=== PATIENT | female | born 1995 | race Caucasian/White ===

== ENCOUNTER 2020-03-15 12:39 | Inpatient (IN) | payer MEDICAID, SELFPAY ==
[2020-03-15] VITALS (23 sets, daily range): BP systolic 106–159; BP diastolic 57–98; PULSE 85–136; RESP 16–28; TEMP 37.1–38.1; O2SAT 89–100; BMI 33.7; BMI 35.4; BMI 35.5
--- NOTE | 2020-03-15 12:28 | ECG_ITS ---
APPROVED REPORT Exam: Resting ECG HR:119 bpm ECG Measurements Heart Rate 119 AXES WY 142 P 37 QRSd 80 QRS 3 QT 296 T 36 QTc 416 <Conclusion> Sinus tachycardia Possible Left atrial enlargement Borderline ECG Electronically signed by : Geoff Almaraz, 03/17/2020 06:27:51
--- NOTE | 2020-03-15 12:45 | XR_ITS ---
PROCEDURE: XR CHEST PORTABLE CLINICAL HISTORY: chest pain COMPARISON: CT CT CHEST WO/W CON from 03/15/2020 FINDINGS: The cardiomediastinal silhouette and pulmonary vascularity are within normal limits. There is vague increased density in the left upper lobe laterally. A faint nodules present in the right upper lobe with central lucency consistent with a cavitating nodule. This area measures 12 mm. No acute bony abnormalities. IMPRESSION: Left upper lobe infiltrate. Small cavitating nodule right upper lobe. Please see chest CT report for further description Dictated by: Christopher Moe MD 03/15/2020 15:24 Christopher Moe MD in [place] 03/15/2020 15:24
--- NOTE | 2020-03-15 12:50 | CT_ITS ---
PROCEDURE: CT CHEST WO/W CON CLINCAL INDICATION: fever Fever and chest pain, right shoulder pain COMPARISON: No exams were available for comparison TECHNIQUE: IV Contrast: 75ml Optiray 350 Axial images obtained with sagittal and coronal reformats. All CT scans at the facility use one or more dose reduction, viz: automated exposure control, ma/kV adjustment per patient size (including targeted exams where dose is matched to indication, i.e. head), or iterative reconstruction technique. FINDINGS: There is mild mediastinal and bilateral hilar adenopathy. Soft tissue density is present in the right lower paratracheal region but is felt to be related to an unopacified azygos vein. No evidence of aortic aneurysm or central pulmonary embolus. There are multiple bilateral pulmonary nodules some of which show central cavitation. Right upper lobe nodule is present and measures 2 cm with some central cavitation. Cavitating nodules present in the right upper lobe posteriorly at 1.5 cm. Subpleural parenchymal opacity is present in the right upper lobe laterally along the major fissure with contiguous subpleural atelectasis or consolidation in the right lower lobe laterally. A small cavitating nodules present in the right lower lobe posteriorly at 9 mm with an additional nodule posterior to this at 5 mm with atelectatic changes in the right lung base posteriorly. On the left there is a masslike area of consolidation measuring 3 cm in the left upper lobe posteriorly along the major fissure with some central cavitation. A nodule is present within the lingula at 8 mm and there is a nodule in the left lower lobe posteriorly at 12 mm. Two additional left lower lobe nodules are present which measure 4 mm. A left upper lobe subpleural nodules present at 3 mm. No significant effusion. Upper abdominal images show splenomegaly at 16 cm. No acute bony anomalies are evident. There is mild kyphosis with degenerative changes of the lower thoracic spine. IMPRESSION: 1. Multiple bilateral pulmonary nodules some of which are cavitating with the largest masslike area of consolidation in the left upper lobe posteriorly and right upper lobe in the apex. Septic emboli are considered. Metastatic disease would be included in the differential diagnosis. Atelectatic changes are present in the lower lobes 2. Mild mediastinal and hilar adenopathy. 3. Splenomegaly Dictated by: Christopher Moe MD 03/15/2020 14:56 Christopher Moe MD in [facility] 03/15/2020 14:56
--- NOTE | 2020-03-15 12:50 | CT_ITS ---
PROCEDURE: CT CERVICAL SPINE WO CON CLINICAL INDICATION: fever Neck pain with fever COMPARISON: No exams were available for comparison TECHNIQUE: Axial images obtained with sagittal and coronal reformats. All CT scans at the facility use one or more dose reduction, viz: automated exposure control, ma/kV adjustment per patient size (including targeted exams where dose is matched to indication, i.e. head), or iterative reconstruction technique. Axial spiral CT scanning performed of the cervical spine beginning at the base of the skull and continuing to the upper T-spine. 3-D multiplanar reconstruction with 3-D manipulation of volumetric data set in image rendering was completed by the radiologist and/or technologist with the supervision of the radiologist on independent workstation. FINDINGS: There is partial opacification of the left mastoid air cells. There is straightening of the cervical lordosis which could be due to patient positioning or muscle spasm. There is minimal spurring of the endplate on the right at C2 posteriorly. Mild degenerative disc disease C5-C6. Remaining cervical spine has an unremarkable appearance. Cavitating masses are present in the right upper lobe. Please see chest CT report for further description. No acute fracture or dislocation. IMPRESSION: 1. Straightening of cervical lordosis with mild degenerative disc disease at C5-C6 with minimal spurring of the posterior endplate on the right inferiorly at C2. 2. Left mastoid effusion. 3. Cavitating right upper lobe masses. Please see chest CT report Dictated by: Christopher Moe MD 03/15/2020 14:48 Christopher Moe MD in [facility] 03/15/2020 14:48
--- NOTE | 2020-03-15 12:50 | XR_ITS ---
PROCEDURE: XR SHOULDER RT MIN 2V CLINICAL INDICATION: pain COMPARISON: No exams were available for comparison FINDINGS: No fracture or dislocation. No lytic or blastic change. There is normal mineralization. The joint spaces are well-preserved. No significant degenerative/arthritic changes. No erosive changes evident. Other findings:None. IMPRESSION: No acute findings. Dictated by: Christopher Moe MD 03/15/2020 15:23 Christopher Moe MD in [facility] 03/15/2020 15:23
[2020-03-15 13:02] LABS: Basophils % 0.3 % (0.1-2.0); Eosinophils # 0.1 K/mm3 (0.0-0.4); Eosinophils % 0.4 % (0.1-12.0); Hematocrit 38.8 % (37.0-47.0); Hemoglobin 12.9 g/dL (12.2-16.2); Lymphocytes # 2.4 K/mm3 (0.7-4.5); Lymphocytes % 19.8 % (10-50); Mean Corpuscular HGB Conc 33.3 g/dL (31.8-35.4); Mean Corpuscular Hemoglobin 28.6 pg (27.0-31.2); Mean Corpuscular Volume 85.7 fl (81-99); Monocytes # 0.5 K/mm3 (0.1-1.0); Monocytes % 4.1 % (1.7-9.3); Neutrophils # 8.9 K/mm3 (1.8-7.8); Neutrophils % 75.3 % (37.0-80.0); Platelet Count 315 K/mm3 (142-424); Red Blood Count 4.53 M/mm3 (4.20-5.40); Red Cell Distribution Width 13.8 % (11.5-17.5); White Blood Count 11.8 K/mm3 (4.8-10.8)
[2020-03-15 13:02] LABS: Microscopic, Urine URINE MICROSCOPIC (MICROSCOPIC)
[2020-03-15 13:04] LABS: Appearance,Urine CLOUDY (Clear); Bilirubin,Urine Negative (Negative); Blood, Urine 3+ (Negative); Color,Urine YELLOW (Yellow); Glucose,Urine (UA) Negative (Negative); Ketones,Urine Negative (Negative); Leukocyte Esterase,Urine 1+ (Negative); Nitrate,Urine Negative (Negative); PH,Urine 6.5 (5.0-8.5); Protein,Urine TRACE (Negative); Specific Gravity, Urine <= 1.005 (1.005-1.030)
[2020-03-15 13:05] LABS: Chloride 96 mmol/L (98-107); Potassium 3.8 mmoL/L (3.5-5.1); Sodium 133 mmol/L (136-145)
[2020-03-15 13:06] LABS: Urine Pregnancy, HCG Qual. Negative (Negative)
[2020-03-15 13:07] LABS: Alanine Aminotransferase 182 U/L (12-78); Aspartate Amino Transferase 90 U/L (14-36); Blood Urea Nitrogen 8 mg/dl (7-17); Creatinine Clearance Estimated 200 mL/min (50-200); Estimated Glomerular Filt Rate 101 ml/min (>60); GFR (African American) 122 ML/MIN (>60)
[2020-03-15 13:08] LABS: Albumin Level 3.6 g/dl (3.5-5.0); Albumin/Globulin Ratio 0.9 (1.1-1.8); Alkaline Phosphatase 96 U/L (38-126); Anion Gap 12.8 mEq/L (5-15); Bilirubin,Total 0.6 mg/dl (0.2-1.3); Calcium 9.2 mg/dl (8.4-10.2); Carbon Dioxide 28 mmol/L (22.0-30.0); Globulin 3.8 g/dL (1.3-3.2); Glucose 132 mg/dl (74-100); Lactic Acid 1.1 mmol/L (0.7-2.1); Strep Scrn Group A (Rapid) Negative (Negative); Total Protein,Serum 7.4 g/dl (6.3-8.2)
[2020-03-15 13:11] LABS: Bacteria,Urine 1+ /lpf; RBC,Urine 20-50 #/hpf (0-3)
[2020-03-15 13:13] LABS: C-Reactive Protein 104.5 mg/L (0-4)
[2020-03-15 13:22] LABS: Troponin I < 0.01 ng/ml (0.00-0.034)
[2020-03-15 13:26] LABS: Erythrocyte Sedimentation Rate 43 mm/hr (0-20)
[2020-03-15 13:56] LABS: Coronavirus 19 IgG Antibody Negative (Negative); Coronavirus 19 IgM Antibody Negative (Negative)
--- NOTE | 2020-03-15 15:13 | PC.NURSE ---
PAGE TO DR HARVEY
--- NOTE | 2020-03-15 15:31 | PC.NURSE ---
[facility] called for transfer, they are on divert.
--- NOTE | 2020-03-15 15:32 | PC.NURSE ---
[facility] called for transfer
--- NOTE | 2020-03-15 15:48 | PC.NURSE ---
Dr Sofia speaking with Dr Castro.
--- NOTE | 2020-03-15 15:51 | HMH.EDFEV ---
ED Disposition Clinical Impression: Viral pneumonia, Septic pulmonary embolism, SIRS (systemic inflammatory response syndrome) Disposition: Xfer Short-Term Hosp Condition on Discharge: Good Referrals: PCP,No [Primary Care Provider] - - Critical Care Critical Care Time: No Attestation: On 03/15/20, the high probability of a clinically significant, sudden or life threatening deterioration of the following system(s) required my full and direct attention, intervention and personal management. The time I documented below is in addition to time spent performing reported procedures but includes the following listed in this critical care notation. Medical Decision Making - Medical Records Medical records reviewed: Yes: I reviewed the patient's medical records. - Jamir Inquiry Pt receiving controlled substance: No Vital Signs: 03/15/20 12:41 03/15/20 14:40 Temperature 100.5 F H Temperature Source Oral Pulse Rate [Right Radial] 118 H 96 H Respiratory Rate 17 20 Blood Pressure [Right Arm] 159/98 H 116/63 Blood Pressure Mean [Right Arm] 118 80 Blood Pressure Source [Right Arm] Automatic Cuff Blood Pressure Position [Right Arm] Sitting 02 Sat by Pulse Oximetry 93 L 91 L Oxygen Delivery Method Room Air Room Air - Lab Data Lab results reviewed: Yes: I reviewed the patient's lab results. Lab Results 03/15/20 12:45: WBC 11.8 H, RBC 4.53, Hgb 12.9, Hct 38.8, MCV 85.7, MCH 28.6, MCHC 33.3, RDW 13.8, Plt Count 315, MPV 10.0, Neut % (Auto) 75.3, Lymph % (Auto) 19.8, [place] % (Auto) 4.1, Eos % (Auto) 0.4, Baso % (Auto) 0.3, Neut # (Auto) 8.9 H, Lymph # (Auto) 2.4, [place] # (Auto) 0.5, Eos # (Auto) 0.1, Baso # (Auto) 0.0 03/15/20 12:45: Sodium 133 L, Potassium 3.8, Chloride 96 L, Carbon Dioxide 28, Anion Gap 12.8, BUN 8, Creatinine 0.70, Estimated Creat Clear 200, Estimated GFR 101, Est GFR ( Amer) 122, Glucose 132 H, Calcium 9.2, Total Bilirubin 0.6, AST 90 H, ALT 182 H, Alkaline Phosphatase 96, Troponin I < 0.01, C-Reactive Protein 104.5 H, Total Protein 7.4, Albumin 3.6, Globulin 3.8 H, Albumin/Globulin Ratio 0.9 L 03/15/20 12:45: Lactate 1.1 03/15/20 12:45: Influenza Type A Ag Negative, Influenza Type B Ag Negative 03/15/20 12:45: Group A Strep Rapid Negative 03/15/20 12:45: ESR 43 H 03/15/20 12:45: SARS-CoV-2 IgG Ab (Rapid) Negative, SARS-CoV-2 IgM Ab (Rapid) Negative 03/15/20 12:50: Urine HCG, Qual Negative 03/15/20 12:50: Urine Color Yellow, Urine Appearance Cloudy, Urine pH 6.5, Ur Specific [place] <= 1.005, Urine Protein Trace, Urine Glucose (UA) Negative, Urine Ketones Negative, Urine Blood 3+, Urine Nitrate Negative, Urine Bilirubin Negative, Urine Urobilinogen 1.0, Ur Leukocyte Esterase 1+ A, Urine RBC 20-50, Urine WBC 10-20, Ur Squamous Epith Cells 5-10, Urine Bacteria 1+ Result diagrams: 03/15/20 12:45 03/15/20 12:45 Orders (Tests/Meds): ED MEDICATIONS Generic Name Dose Route Start Last Admin Trade Name Freq PRN Reason Stop Dose Admin Sodium Chloride 1,000 mls @ 999 mls/hr 03/15/20 15:15 03/15/20 15:16 Sod Chlor 0.9% 1000ml Bag IV 03/15/20 16:15 999 mls/hr .Q1H1M JERSON Administration Discontinued Medications Generic Name Dose Route Start Last Admin Trade Name Freq PRN Reason Stop Dose Admin Acetaminophen 1,000 mg 03/15/20 12:45 03/15/20 12:52 Tylenol 500mg Tablet PO 03/15/20 12:46 1,000 mg ONCE ONE Administration Sodium Chloride 1,000 mls @ 999 mls/hr 03/15/20 12:45 03/15/20 12:52 Sod Chlor 0.9% 1000ml Bag IV 03/15/20 13:45 999 mls/hr .[id number] JERSON Administration Piperacillin Sod/Tazobactam 100 mls @ 200 mls/hr 03/15/20 15:13 03/15/20 15:16 Sod 4.5 gm/ Sodium Chloride IV 03/15/20 15:42 200 mls/hr ONCE ONE Administration Protocol Ioversol 75 ml 03/15/20 13:50 03/15/20 13:51 Rad-Optiray 350 100ml Vial IV 03/15/20 13:51 75 ml ONCE ONE Administration Protocol Ketorolac Tromethamine 30 mg 03/15/20 12:45 03/15/20 12:52 Matilde
--- NOTE | 2020-03-15 16:34 | PC.NURSE ---
Placed call to [facility], they are working on bed placement, can not give definite time frame but [facility] Advised they would call as soon as they have a bed for the pt.
--- NOTE | 2020-03-15 18:20 | PC.NURSE ---
placed call to [facility], media marketing coordinator advised she had escalated it to her housekeeper hospital, who was busy at the moment, she would try to call back in about 15 minutes to update us.
--- NOTE | 2020-03-15 19:04 | PC.NURSE ---
[facility] called advising it would be probably a couple hrs before they would have a bed.
--- NOTE | 2020-03-15 19:55 | PC.NURSE ---
PER PATIENT REQUEST, I CALLED HER MOTHER TO EXPLAIN WHAT WAS GOING ON WITH PATIENT, HER CURRENT PLAN OF CARE, AND THE NEED TO TRANSFER TO HIGHER LEVEL OF CARE. MOTHER UNDERSTANDS CURRENT PLAN, AND WAS EDUCATED ON DAUGHTER'S CONDITION. PATIENT'S MOTHER WILL CALL BACK IN APPROX 60-90 MIN FOR ANOTHER UPDATE
--- NOTE | 2020-03-15 19:58 | PC.NURSE ---
AT SHIFT CHANGE, [employer] IN[employer]CTOR SPOKE TO [facility] FOR BED STATUS. THEY STATED IT WOULD BE ATLEAST 2 HOURS BEFORE WE RECEIVE A BED. VSS
--- NOTE | 2020-03-15 21:01 | PC.NURSE ---
calling [facility] for status of bed
--- NOTE | 2020-03-15 21:02 | PC.NURSE ---
talked to Monique in bed assignment and she advised that they have a bed but not enough staff.
--- NOTE | 2020-03-15 21:08 | PC.NURSE ---
spoke with hieu bradshaw who stated she was unaware of the pt and that she would get more information about her bed assignment and call back.
--- NOTE | 2020-03-15 21:47 | PC.NURSE ---
Addendum entered by Mari Cisneros RN 03/15/20 21:52: 2123 time of conversation. Original Note: transfer center called and asked why we spoke with their house supp. this nurse explained that we had gotten two different stories. one that was the pt would have a bed in couple of hours and the other which was we have a bed but not the staff to take the pt the transfer center personnel said that we were misinformed when we were told the pt would have a bed in a few hours. this nurse explained that we are trying to figure out the best plan of action for our pt and decide if we need to admit her here until a bed assignment becomes available. [facility] staff stated it wont be until at least tomorrow until the pt will have a bed assignment.
--- NOTE | 2020-03-15 21:50 | PC.NURSE ---
paged Dr. ortiz for admission. House supp. notified of pt situation
--- NOTE | 2020-03-15 21:58 | PC.NURSE ---
Dr. Davies accepted admission
--- NOTE | 2020-03-15 22:17 | PC.NURSE ---
called and spoke with Yuni in pharmacy for continued Vanc dose for pt admission. yuni stated to continue the 2G vanc in 250ml bag over 2 hours for Q8h. he stated to give the next dose at 03/16 0500 and that he would adjust her vanc in the morning if needed.
--- NOTE | 2020-03-15 22:50 | PC.NURSE ---
report called to DOUGLAS Friedman. instructions to give Vanc at 03/16/20 0206
--- NOTE | 2020-03-15 22:59 | PC.NURSE ---
patient up to floor via wheelchair.
[2020-03-16] VITALS (7 sets, daily range): BP systolic 102–122; BP diastolic 58–77; PULSE 64–94; RESP 16–36; TEMP 36.5–39.4; O2SAT 92–100; BMI 35.5
--- NOTE | 2020-03-16 02:06 | PC.NURSE ---
Pt. had her O2 off. O2 sat on room air = 70%.
--- NOTE | 2020-03-16 02:13 | PC.NURSE ---
0145 Pt temp at 0135 was 1.2.7, RR 26, O2 sats 93% on 2L via nc. Tylenol given as ordered. Cool cloth applied to neck and face. Apple juice provided per pt request.
--- NOTE | 2020-03-16 02:36 | PC.NURSE ---
Temp now 103 oral, ibuprofen administered, ice packs applied to armpits and groin. fan turned on in room, room temp turned down.
--- NOTE | 2020-03-16 02:41 | PC.NURSE ---
called mother per pt request to give update
[2020-03-16 06:14] LABS: POC Glucose,Bedside 89 (70-110)
--- NOTE | 2020-03-16 06:50 | PC.NURSE ---
Pt continues to have tachypnea with respiratory rate in upper 20's. Oxygen continues at 2L/min via nc with sats 92+. At this time, pt is afebrile. Received call from [facility] that receiving MD had upgraded pt status to ICU, awaiting ICU bed at this time.
--- NOTE | 2020-03-16 07:48 | HMH.PHAVTE ---
[facility] Pharmacy VTE Monitoring - Patient Demographics Admission date: 03/16/20 Report Date: 03/16/20 Time: 07:48 Allergies/Adverse Reactions: Patient Allergies No Known Allergies Allergy (Verified 03/15/20 12:44) Height: 1.75 m Weight: 108.919 kg Patient Problems: Current Active Problems Viral pneumonia (Acute) Septic pulmonary embolism (Acute) SIRS (systemic inflammatory response syndrome) (Acute) - VTE Risk Labs: VTE Related Lab Results Hgb 12.9 g/dL (12.2-16.2) 03/15/20 12:45 Hct 38.8 % (37.0-47.0) 03/15/20 12:45 Plt Count 315 K/mm3 (142-424) 03/15/20 12:45 BUN 8 mg/dl (7-17) 03/15/20 12:45 Creatinine 0.70 mg/dl (0.52-1.04) 03/15/20 12:45 Estimated Creat Clear 200 mL/min (50-200) 03/15/20 12:45 Was VTE Risk Assessment Performed: Yes VTE Score: 3 VTE Risk Level: Low Risk Clinical Trial Participant: No - Prophylaxis VTE Prophylaxis Ordered?: Yes Types of VTE Prophylaxis: TEDS Knee High Location of Applied Device: Refused
--- NOTE | 2020-03-16 07:58 | HMH.PHACONS ---
- Pharmacy Consult Date: 03/16/20 Time: 07:58 Referring provider: DR. HERNADEZ Reason for Consult:: VANCOMYCIN DOSING Allergies and ADEs:: Allergies Allergy/AdvReac Type Severity Reaction Status Date / Time No Known Allergies Allergy Verified 03/15/20 12:44 Home Medications:: Home Medications Medication Instructions Recorded Confirmed Type No Known Home Medications 03/16/20 03/16/20 History Height: 1.75 m Weight: 108.919 kg Laboratory Results:: Laboratory Results - last 24 hr 03/15/20 12:45: WBC 11.8 H, RBC 4.53, Hgb 12.9, Hct 38.8, MCV 85.7, MCH 28.6, MCHC 33.3, RDW 13.8, Plt Count 315, MPV 10.0, Neut % (Auto) 75.3, Lymph % (Auto) 19.8, [place] % (Auto) 4.1, Eos % (Auto) 0.4, Baso % (Auto) 0.3, Neut # (Auto) 8.9 H, Lymph # (Auto) 2.4, [place] # (Auto) 0.5, Eos # (Auto) 0.1, Baso # (Auto) 0.0 03/15/20 12:45: Sodium 133 L, Potassium 3.8, Chloride 96 L, Carbon Dioxide 28, Anion Gap 12.8, BUN 8, Creatinine 0.70, Estimated Creat Clear 200, Estimated GFR 101, Est GFR ( Amer) 122, Glucose 132 H, Calcium 9.2, Total Bilirubin 0.6, AST 90 H, ALT 182 H, Alkaline Phosphatase 96, Troponin I < 0.01, C-Reactive Protein 104.5 H, Total Protein 7.4, Albumin 3.6, Globulin 3.8 H, Albumin/Globulin Ratio 0.9 L 03/15/20 12:45: Lactate 1.1 03/15/20 12:45: Influenza Type A Ag Negative, Influenza Type B Ag Negative 03/15/20 12:45: Group A Strep Rapid Negative 03/15/20 12:45: ESR 43 H 03/15/20 12:45: SARS-CoV-2 IgG Ab (Rapid) Negative, SARS-CoV-2 IgM Ab (Rapid) Negative 03/15/20 12:50: Urine HCG, Qual Negative 03/15/20 12:50: Urine Color Yellow, Urine Appearance Cloudy, Urine pH 6.5, Ur Specific [place] <= 1.005, Urine Protein Trace, Urine Glucose (UA) Negative, Urine Ketones Negative, Urine Blood 3+, Urine Nitrate Negative, Urine Bilirubin Negative, Urine Urobilinogen 1.0, Ur Leukocyte Esterase 1+ A, Urine RBC 20-50, Urine WBC 10-20, Ur Squamous Epith Cells 5-10, Urine Bacteria 1+ 03/16/20 06:05: POC Glucose 89 Medical History: Reports:: Diabetes Mellitus Type 2 Denies:: Cancer, Diabetes Mellitus Type 1, MRSA Assessment and Plan - Assessment and plan all Dx Assessment and Plan for all problems:: BASED ON PATIENT FACTORS, RECOMMEND VANCOMYCIN 2 GM IV Q8H. WILL OBTAIN VANCOMYCIN TROUGH LEVEL PRIOR TO 4TH DOSE. PHARMACY WILL FOLLOW DAILY AND ADJUST APPROPRIATE.
--- NOTE | 2020-03-16 08:21 | CA_ITS ---
APPROVED REPORT EXAM: Comprehensive 2D, Doppler, and color-flow Echocardiogram Tax Collector: Chelle Krueger RT(R) Ht: 5 ft 9 in Wt: 240lbs BSA: 2.23 BP: 116/63 mmHg Indications: septic emboli, smoker, drug abuse including heroin, pneumonia, fever 2D Dimensions LVOT 1.90 cm (M/F) 1.5-2.5 M-Mode Dimensions RVDd 2.23 cm (0.9-2.6) LVDd 4.82 cm (3.5-5.7) LVDs 3.59 cm (3.5-5.7) IVSd 0.96 cm (0.6-1.1) PWd 0.88 cm (0.6-1.1) EF (Teich) 50.20% FS 25.50% EDV (Teich) 108.60 mL ESV (Teich) 54.10 mL LV Diastology E/A Ratio 1.69 Mitral Valve MV A Velocity 44.00 (40-130 cm/s) Left Ventricle Technically difficult study, left atrium is normal size, left ventricle is normal size, there is no concentric left ventricular hypertrophy, visually estimated ejection fraction 55% with no regional wall motion abnormality. Diastolic parameters are within normal range. Right Ventricle Right atrium and right ventricular normal size and contractility. Aortic Valve Aortic valve is grossly normal, there is no aortic stenosis or aortic insufficiency. Mitral Valve Mitral valve is grossly normal, there is trace mitral regurgitation. Tricuspid Valve Tricuspid valve leaflets are not well visualized. There is no significant tricuspid regurgitation seen. Pulmonic Valve Pulmonic valve is not well visualized Great Vessels Aortic root is normal size. Pericardium No significant pericardial effusion noted. Conclusion 1. Normal left ventricular size, preserved left ventricular systolic function, visually estimated ejection fraction 55% with no regional wall motion abnormality, diastolic parameters are within normal range. 2. No obvious valvular vegetation identified with this study, however pulmonic and tricuspid valves are not well visualized. If clinically indicated transesophageal echocardiogram is recommended. 3. No significant pericardial effusion noted. Electronically signed by : Jose Jeronimo, 03/16/2020 13:51:09
--- NOTE | 2020-03-16 08:43 | HMH.PULMCON ---
*Admission Date: 03/16/20 *Reason for consult:: Pneumonia, hypoxic respiratory failure *History of present illness: Ms. Griffin is a 24-year-old female IV drug abuser presented to the hospital complaining of worsening right-sided shoulder pain for the last 10 days. On presentation to the ED she was also appeared to be hypoxic which prompted to get a CT chest which showed bilateral pulmonary nodules and pulmonary was consulted for further management. Patient on further questioning denies any fevers, chills, weight loss, loss of appetite. Denies any cough or any productive phlegm. Denies any prior respiratory issues. Not using any inhalers at home. [facility] History I have reviewed the patient's past medical history: Yes Medical History: Reports:: Diabetes Mellitus Type 2 Denies:: Cancer, Diabetes Mellitus Type 1, MRSA *Have you ever received a pneumonia vaccine?: Yes *Have you received a flu vaccine this season?: Yes Other Medical History: Reports: Other Other Surgeries: Yes: Other - *Social History Last grade of school completed: None Smoking Status: Current every day smoker # Packs/Day (cigarettes): 1 Alcohol Intake: never Alcohol Intake Frequency:: other Substance Use Type: heroin, methamphetamine Last Used Substance: days (ago) *Occupational Status:: unemployed Housing: house Household Members: family *Travel in the last 8 weeks: None Family Hx:: Other [facility] Pulmonology ROS - Constitutional Reports body ache(s), Reports chills - Eyes Denies blind spots, Denies blurry vision - ENT Denies abnormal hearing - *Cardiovascular Denies chest pain, Denies chest pain at rest - *Respiratory Respiratory: Yes system reviewed and no additional complaints, except as docu, Yes as per HPI, No shortness of breath, No cough, No dyspnea, No dyspnea on exertion - *Gastrointestinal Gastrointestingal: Reports: system reviewed and no additional complaints, except as docu, as per HPI - *Musculoskeletal Musculoskeletal: Reports joint swelling Comments: Right shoulder swelling and pain - Endocrine Denies cold intolerance Meds Home Medications Medication Instructions Recorded Confirmed Type No Known Home Medications 03/16/20 03/16/20 History Allergies Allergy/AdvReac Type Severity Reaction Status Date / Time No Known Allergies Allergy Verified 03/15/20 12:44 Exam Vital signs and Labs for Last 24 Hours: Temp Pulse Resp BP Pulse Ox 98.3 F 78 20 108/63 L 97 03/16/20 04:00 03/16/20 04:00 03/16/20 04:00 03/16/20 04:00 03/16/20 04:00 Laboratory Results - last 24 hr 03/15/20 12:45: WBC 11.8 H, RBC 4.53, Hgb 12.9, Hct 38.8, MCV 85.7, MCH 28.6, MCHC 33.3, RDW 13.8, Plt Count 315, MPV 10.0, Neut % (Auto) 75.3, Lymph % (Auto) 19.8, [place] % (Auto) 4.1, Eos % (Auto) 0.4, Baso % (Auto) 0.3, Neut # (Auto) 8.9 H, Lymph # (Auto) 2.4, [place] # (Auto) 0.5, Eos # (Auto) 0.1, Baso # (Auto) 0.0 03/15/20 12:45: Sodium 133 L, Potassium 3.8, Chloride 96 L, Carbon Dioxide 28, Anion Gap 12.8, BUN 8, Creatinine 0.70, Estimated Creat Clear 200, Estimated GFR 101, Est GFR ( Amer) 122, Glucose 132 H, Calcium 9.2, Total Bilirubin 0.6, AST 90 H, ALT 182 H, Alkaline Phosphatase 96, Troponin I < 0.01, C-Reactive Protein 104.5 H, Total Protein 7.4, Albumin 3.6, Globulin 3.8 H, Albumin/Globulin Ratio 0.9 L 03/15/20 12:45: Lactate 1.1 03/15/20 12:45: Influenza Type A Ag Negative, Influenza Type B Ag Negative 03/15/20 12:45: Group A Strep Rapid Negative 03/15/20 12:45: ESR 43 H 03/15/20 12:45: SARS-CoV-2 IgG Ab (Rapid) Negative, SARS-CoV-2 IgM Ab (Rapid) Negative 03/15/20 12:50: Urine HCG, Qual Negative 03/15/20 12:50: Urine Color Yellow, Urine Appearance Cloudy, Urine pH 6.5, Ur Specific [place] <= 1.005, Urine Protein Trace, Urine Glucose (UA) Negative, Urine Ketones Negative, Urine Blood 3+, Urine Nitrate Negative, Urine Bilirubin Negative, Urine Urobilinogen 1.0, Ur Leukocyte Esterase 1+ A, Urine RBC 20-50, Urine WBC 10-20, Ur Squamous Ep
--- NOTE | 2020-03-16 11:24 | PC.NURSE ---
MELY FROM [facility] CALLED FOR AN UPDATE ON PT AND STATED THEY CURRENTLY DO NOT HAVE A BED AND WILL TOUCH BASE WITH ME IN A FEW HOURS FOR ANOTHER UPDATE
[2020-03-16 11:30] LABS: POC Glucose,Bedside 94 (70-110)
[2020-03-16 14:30] LABS: Covid-19 Nasal PCR Sendout Lex NOT DETECTED
--- NOTE | 2020-03-16 17:25 | PC.NURSE ---
ALERT AND ORIENTED X4. PT C/O ANXIETY AND INCREASED PAIN IN SHOULDER. POULTRY FARM WORKER PHYSICIAN, DR. LEVINE NOTIFIED, ATIVAN 0.5MG PO Q6 PRN ANXIETY WAS ORDERED AND ADMINISTERED. PT REFUSED 1600 FSBS D/T HER ARM PAIN. PT REMAINS IN CONTACT AND [place] WITH EYE PROTECTION PRECAUTIONS FOR PENDING COVID TEST. PT DENIES SOB, LUNGS ARE CTA. O2 SAT REMAINS MID 90'S ON 2LNC. NO DISTRESS NOTED. ABDOMEN IS LARGE, SOFT, AND NON-TENDER WITH ACTIVE BS IN ALL QUADS. PO INTAKE AND APPETITE IS ADEQUATE. NO REPORTED BM. PT AMBULATES INDEPENDENTLY TO BATHROOM AND VOIDS CLEAR YELLLOW URINE WITHOUT PROBLEM. CURRENTLY WAITING FOR A BED AT [facility], BED ASSIGNMENT NURSE HAS CALLED X3 FOR UPDATE ON PT, STILL NO BED AVAILABLE. PT C/O OF RIGHT SHOULDER PAIN, MEDICATION ADMINISTERED PER MAR. NO DISCOLORATION, NO REDNESS, NO EDEMA, PULSES PALPABLE. IV ACCESS LOST THIS AFTERNOON AND ULTRASOUND WAS UTILIZED TO PLACE 20G L UPPER ARM. IV IS SECURE, PATENT, AND INFUSING ABX AT THIS TIME. SAFETY MEASURES IN PLACE, WILL CONTINUE TO MONITOR
--- NOTE | 2020-03-16 17:28 | HMH.HPDC ---
General - General Admission date:: 03/15/20 Discharge date: 03/16/20 *Admission Date: 03/16/20 *Chief complaint: soa *History of present illness: 24-year-old female IV drug abuser presented to the hospital complaining of worsening right-sided shoulder pain chest pain, fever, shortness of breath and general malaise x2 days. Pt states last iv drug use was 2 days ago and this is when she started feeling worse. On presentation to the ED she was hypoxic on further questioning denies any fevers, chills, weight loss, loss of appetite. Denies any cough or any productive phlegm. Patient denies any cough. Patient does rate her chest pain 4 out of 10 classifies a sharp sensation. pt admitted while waiting for bed at [facility]. [facility] History I have reviewed the patient's past medical history: Yes Medical History: Reports:: Diabetes Mellitus Type 2 Denies:: Cancer, Diabetes Mellitus Type 1, MRSA *Have you ever received a pneumonia vaccine?: Yes *Have you received a flu vaccine this season?: Yes Other Medical History: Reports: Other Other Surgeries: Yes: Other - *Social History Last grade of school completed: None Smoking Status: Current every day smoker # Packs/Day (cigarettes): 1 Alcohol Intake: never Alcohol Intake Frequency:: other Substance Use Type: heroin, methamphetamine Last Used Substance: days (ago) *Occupational Status:: unemployed Housing: house Household Members: family *Travel in the last 8 weeks: None Family Hx:: Other Review of Systems - Review of Systems Review of systems:: pertinent systems reviewed and negative unless documented below - Constitutional Reports body ache(s), Reports fatigue, Reports weakness, Denies fever(s) - Eyes Denies blurry vision - ENT Denies nose pain, Denies sore throat - *Cardiovascular Reports chest pain at rest, Reports shortness of breath - *Respiratory Reports chest congestion, Reports shortness of breath with activity, Denies cough - *Gastrointestinal Denies nausea, Denies vomiting - *Genitourinary Denies difficulty urinating - Integumentary/Breasts Denies rash - *Neurologic Reports weakness, Denies abnormal hearing - Psychiatric Denies anxiety - Endocrine Denies flushing - Hematologic/Lymphatic Denies enlarged lymph nodes - Allergic/Immunologic Denies itchy eyes Exam Vital signs and Labs for Last 24 Hours: Temp Pulse Resp BP Pulse Ox 97.8 F 64 16 102/67 L 100 03/16/20 12:00 03/16/20 12:00 03/16/20 12:00 03/16/20 12:00 03/16/20 12:00 Laboratory Results - last 24 hr 03/15/20 13:20: COVID-19 PCR Not detected 03/16/20 06:05: POC Glucose 89 03/16/20 11:23: POC Glucose 94 I & O for Last 24 hours: Intake & Output 03/14/20 03/15/20 03/16/20 03/17/20 11:59 11:59 11:59 11:59 Intake Total 1120 / 1120 Balance 1120 / 1120 Weight 240 lb 2 oz Microbiology Reports for the Last 24 Hours: Microbiology 03/15/20 12:50 Urine,Clean Catch Urine Culture - Preliminary NO GROWTH AFTER 24 HOURS 03/15/20 12:46 Blood Blood Culture - Preliminary 03/15/20 12:46 Blood Blood Culture - Preliminary - Constitutional mild distress, obese - *Routine HEENT Exam Head: Present: normocephalic Eye: Present: PERRL ENT: Present: mucous membranes moist - *Routine Neck Exam Present: supple. Absent: lymphadenopathy - *Routine Respiratory Exam Present: decreased breath sounds, rhonchi - *Routine Cardiovascular Exam Present: RRR - *Routine Abdominal Exam Present: soft, normoactive bowel sounds. Absent: tenderness - *Routine Extremities Exam Absent: cyanosis, clubbing, edema - *Routine Skin Exam Present: warm. Absent: rash - *Routine Neurological Exam Present: alert, oriented X3 - Routine Psychiatric Exam Present: normal affect Hospital Course Hospital Course: Laboratory Tests 03/15/20 03/15/20 03/15/20 12:45 12:45 12:45 WBC 11.8 H RBC 4.53 Hgb 12.9
--- NOTE | 2020-03-16 18:56 | PC.NURSE ---
I REQUESTED FOR RT TO INDUCE SPUTUM. RT NOTIFIED ME THAT IT IS NOT RECOMMENDED TO INDUCE SPUTUM UNTIL PENDING COVID RESULTS COME BACK
--- NOTE | 2020-03-16 19:13 | PC.NURSE ---
report given to rafi
--- NOTE | 2020-03-16 19:20 | PC.NURSE ---
RT collected SPT and sent it to lab from 2nd floor.
[2020-03-16 20:47] LABS: POC Glucose,Bedside 163 (70-110)
[2020-03-17] VITALS: BP 110/55; PULSE 83; RESP 19; TEMP 36.7; O2SAT 97
--- NOTE | 2020-03-17 02:04 | PC.NURSE ---
Pt awake at this time. Denies pain/shortness of breath. Lung sounds clear throughout. Pt remains afebrile at this time.
[2020-03-17 04:18] VITALS: BP 116/67; PULSE 77; RESP 20; TEMP 36.6; O2SAT 98
[2020-03-17 05:16] VITALS: BMI 36.3
[2020-03-17 05:37] LABS: POC Glucose,Bedside 128 (70-110)
--- NOTE | 2020-03-17 07:25 | PC.NURSE ---
RECEIVED CALL FROM [facility] LETTING US KNOW THEY DO NOT HAVE A BED AVAILABLE AT THIS TIME AND WILL KEEP US UPDATED
[2020-03-17 07:52] VITALS: BP 117/69; PULSE 75; RESP 22; TEMP 36.8; O2SAT 97
[2020-03-17 08:00] VITALS: O2SAT 97
--- NOTE | 2020-03-17 10:37 | PC.NURSE ---
VIOLETTE LANGLEY APRN ROUNDING AWARE OF UNAVAILABLE BED AT [facility] AT THIS TIME.
[2020-03-17 11:06] VITALS: BP 122/65; PULSE 93; RESP 19; TEMP 37.1; O2SAT 97
[2020-03-17 11:37] LABS: POC Glucose,Bedside 138 (70-110)
--- NOTE | 2020-03-17 14:02 | PC.NURSE ---
called lab d/t vanc troughth not being collected yet and was due at 1230. they are sending a tech to do labs. unable to admin iv vanc until after troughth resulted
--- NOTE | 2020-03-17 14:20 | PC.NURSE ---
unable to obtain labwork. this rn attempted twice laboratory mechanical technician attempted. patient refusing to allow anyone else to try. pharmacist naeem nicole, said to go ahead and give current dose then page md to see what to do after this dose.
--- NOTE | 2020-03-17 14:37 | PC.NURSE ---
ANOTHER HOG DROPPER CAME TO DRAW LAB. PATIENT LET HER DRAW LABS. VANC TROUGH COLLECTED AFTER PHARMACY HAD ALREADY MADE VANC, SALLIE SAID TO GIVE DOSE AND THEY WILL DOSE THE NEXT ONE BASED ON LAB.
[2020-03-17 15:07] LABS: Vancomycin,Trough 13.7 ug/mL (5.0-10.0)
[2020-03-17 15:15] VITALS: BP 129/76; PULSE 90; RESP 19; TEMP 37; O2SAT 99
--- NOTE | 2020-03-17 15:34 | PC.NURSE ---
spoke to bed coordinator at [facility], gave update on patient status. she is going to see if md marks allow her to go to tele floor instead of icu and call back. pharmacist welding machine operator electron beam Valentina also called with vanc trough results of 13.7 no n/o, said to leave dose the same.
--- NOTE | 2020-03-17 15:48 | HMH.ACPN2 ---
Internal Medicine - PN: Subj *Date: 03/17/20 *Time: 10:00 Interval history: Pt asking if she can be transferred to [facility] instead of [facility]. discussed that pt needs a higher level of care. Pt states ok Exam Vital signs and Labs for Last 24 Hours: Temp Pulse Resp BP Pulse Ox 98.6 F 90 19 129/76 99 03/17/20 15:15 03/17/20 15:15 03/17/20 15:15 03/17/20 15:15 03/17/20 15:15 Laboratory Results - last 24 hr 03/16/20 20:38: POC Glucose 163 H 03/17/20 05:29: POC Glucose 128 H 03/17/20 11:15: POC Glucose 138 H 03/17/20 14:35: Vancomycin Trough 13.7 H I & O for Last 24 hours: Intake & Output 03/15/20 03/16/20 03/17/20 03/18/20 11:59 11:59 11:59 11:59 Intake Total 1120 / 1120 1310 / 1310 120 / 120 Balance 1120 / 1120 1310 / 1310 120 / 120 Weight 240 lb 2 oz 245 lb 7 oz Microbiology Reports for the Last 24 Hours: Microbiology 03/15/20 12:46 Blood Blood Culture - Preliminary Gram Positive Cocci 03/15/20 12:46 Blood Blood Culture - Preliminary Gram Positive Cocci 03/15/20 12:45 Throat Group A Streptococcus Screen (NICOLASA) - Final Negative for Group A Streptococcus. 03/16/20 19:00 Sputum - Expectorated Sputum Gram Stain - Final 03/16/20 19:00 Sputum - Expectorated Sputum Sputum Culture - Preliminary 03/15/20 12:50 Urine,Clean Catch Urine Culture - Final Multiple organisms, suggests contamination. - Constitutional mild distress, obese - *Routine HEENT Exam Head: Present: normocephalic Eye: Present: PERRL ENT: Present: mucous membranes moist - *Routine Neck Exam Present: supple. Absent: lymphadenopathy - *Routine Respiratory Exam Present: decreased breath sounds, rhonchi - *Routine Cardiovascular Exam Present: RRR - *Routine Abdominal Exam Present: soft, normoactive bowel sounds. Absent: tenderness - *Routine Extremities Exam Present: normal capillary refill. Absent: cyanosis, clubbing, edema - *Routine Skin Exam Present: warm. Absent: rash - *Routine Neurological Exam Present: alert, oriented X3 Assessment and Plan (1) SIRS (systemic inflammatory response syndrome) Current visit: Yes Status: Acute Category: Medical Code(s): R65.10 - Systemic inflammatory response syndrome (SIRS) of non-infectious origin without acute organ dysfunction (2) Septic pulmonary embolism Current visit: Yes Status: Acute Category: Medical Code(s): I26.90 - Septic pulmonary embolism without acute cor pulmonale (3) Viral pneumonia Current visit: Yes Status: Acute Category: Medical Code(s): J12.9 - Viral pneumonia, unspecified - Assessment and plan all Dx Assessment and Plan for all problems:: dr ortiz will round later today. all orders per angel waiting for transfer to [facility] when bed ready
[2020-03-17 16:20] LABS: Basophils % 0.4 % (0.1-2.0); Eosinophils # 0.1 K/mm3 (0.0-0.4); Eosinophils % 1.2 % (0.1-12.0); Hematocrit 33.4 % (37.0-47.0); Hemoglobin 11.6 g/dL (12.2-16.2); Lymphocytes % 24.3 % (10-50); Mean Corpuscular HGB Conc 34.7 g/dL (31.8-35.4); Mean Corpuscular Hemoglobin 29.8 pg (27.0-31.2); Mean Corpuscular Volume 86.1 fl (81-99); Mean Platelet Volume 10.6 fl (7.4-10.4); Monocytes # 0.4 K/mm3 (0.1-1.0); Neutrophils # 5.6 K/mm3 (1.8-7.8); Neutrophils % 69.1 % (37.0-80.0); Platelet Count 228 K/mm3 (142-424); Red Blood Count 3.88 M/mm3 (4.20-5.40); Red Cell Distribution Width 14.1 % (11.5-17.5); White Blood Count 8.1 K/mm3 (4.8-10.8)
[2020-03-17 16:21] LABS: Anion Gap 8.1 mEq/L (5-15); Blood Urea Nitrogen 8 mg/dl (7-17); Calcium 8.3 mg/dl (8.4-10.2); Carbon Dioxide 28 mmol/L (22.0-30.0); Chloride 104 mmol/L (98-107); Creatinine Clearance Estimated 250 mL/min (50-200); Estimated Glomerular Filt Rate 121 ml/min (>60); GFR (African American) 146 ML/MIN (>60); Glucose 132 mg/dl (74-100); Potassium 4.1 mmoL/L (3.5-5.1); Sodium 136 mmol/L (136-145)
[2020-03-17 16:29] LABS: POC Glucose,Bedside 111 (70-110)
[2020-03-17 16:39] LABS: Chloride 103 mmol/L (98-107); Sodium 135 mmol/L (136-145)
[2020-03-17 16:42] LABS: Blood Urea Nitrogen 8 mg/dl (7-17); Calcium 8.5 mg/dl (8.4-10.2); Carbon Dioxide 27 mmol/L (22.0-30.0); Creatinine Clearance Estimated 250 mL/min (50-200); Estimated Glomerular Filt Rate 121 ml/min (>60); GFR (African American) 146 ML/MIN (>60); Glucose 136 mg/dl (74-100)
--- NOTE | 2020-03-17 16:57 | PC.NURSE ---
report called to jasmina figueroa at [address]
--- NOTE | 2020-03-17 17:36 | PC.NURSE ---
ems here to get patient. all belongings sent with patient. patients mother aware of transfer.
--- NOTE | 2020-03-18 11:58 | P.CONPHA_ITS ---
- Pharmacy Consult Date: 03/18/20 Time: 11:58 Referring provider: DR. HERNADEZ Reason for Consult:: VANCOMYCIN TROUGH LEVEL Allergies and ADEs:: Allergies Allergy/AdvReac Type Severity Reaction Status Date / Time No Known Allergies Allergy Verified 03/15/20 12:44 Home Medications:: Home Medications Medication Instructions Recorded Confirmed Type No Known Home Medications 03/16/20 03/16/20 History Height: 1.75 m Weight: 111.329 kg Laboratory Results:: Laboratory Results - last 24 hr 03/17/20 14:35: Vancomycin Trough 13.7 H 03/17/20 14:35: Sodium 135 L, Potassium 4.0, Chloride 103, Carbon Dioxide 27, Anion Gap 9.0, BUN 8, Creatinine 0.60, Estimated Creat Clear 250, Estimated GFR 121, Est GFR ( Amer) 146, Glucose 136 H, Calcium 8.5 03/17/20 14:35: WBC 8.1 D, RBC 3.88 L, Hgb 11.6 L, Hct 33.4 L, MCV 86.1, MCH 29.8, MCHC 34.7, RDW 14.1, Plt Count 228 D, MPV 10.6 H, Neut % (Auto) 69.1, Lymph % (Auto) 24.3, [place] % (Auto) 5.0, Eos % (Auto) 1.2, Baso % (Auto) 0.4, Neut # (Auto) 5.6, Lymph # (Auto) 2.0, [place] # (Auto) 0.4, Eos # (Auto) 0.1, Baso # (Auto) 0.0 03/17/20 14:35: Sodium 136, Potassium 4.1, Chloride 104, Carbon Dioxide 28, Anion Gap 8.1, BUN 8, Creatinine 0.60, Estimated Creat Clear 250, Estimated GFR 121, Est GFR ( Amer) 146, Glucose 132 H, Calcium 8.3 L 03/17/20 16:04: POC Glucose 111 H Medical History: Reports:: Diabetes Mellitus Type 2 Denies:: Cancer, Diabetes Mellitus Type 1, MRSA Assessment and Plan (1) SIRS (systemic inflammatory response syndrome) Status: Acute Category: Medical Code(s): R65.10 - Systemic inflammatory response syndrome (SIRS) of non-infectious origin without acute organ dysfunction (2) Septic pulmonary embolism Status: Acute Category: Medical Code(s): I26.90 - Septic pulmonary embolism without acute cor pulmonale (3) Viral pneumonia Status: Acute Category: Medical Code(s): J12.9 - Viral pneumonia, unspecified - Assessment and plan all Dx Assessment and Plan for all problems:: BASED ON PATIENT'S VANCOMYCIN TROUGH LEVEL LAST NIGHT, RECOMMENDED PATIENT CONTINUING VANCOMYCIN 2 GM IV Q8H. PATIENT HAS BEEN TRANSFERRED.
== END 2020-03-17 17:35 | disposition short-term general hospital (02) | DRG 306 ==
LOC: ER 17:44 → 2ND 03-16 08:50
PROVIDERS: Internal Medicine Pulmonary Disease; Nurse Practitioner Family; Admitting Provider Emergency Medicine; Emergency Provider Family Medicine; Visit Provider Emergency Medicine
DX: I38 Endocarditis, valve unspecified (principal); I26.90 Septic pulmonary embolism without acute cor pulmonale; J12.9 Viral pneumonia, unspecified; J96.01 Acute respiratory failure with hypoxia; R65.10 Systemic inflammatory response syndrome (SIRS) of non-infectious origin without acute organ dysfunction; F11.20 Opioid dependence, uncomplicated
CPT/HCPCS: 71045; 71270; 72125; 73030; 80048; 80053; 80202; 81001; 81025; 82962; 83605; 84484; 85025; 85651; 86140; 86328; 87040; 87070; 87077; 87086; 87186; 87205; 87275; 87276; 87430; 93005; 93306; 94761; 96365; 96366; 96367; 96372; 96375; 99285; J2405; J2543; J3370; Q9967; U0004